=== PATIENT | female | born 1970 | race Caucasian/White ===

== ENCOUNTER → 2016-09-29 | Outpatient (CLI) | payer SELFPAY ==
[~2016-09-29] MED LIST: ADVAIR 500-501 EACH INH; ALDACTAZIDE 251 EACH PO; ASPIRIN325 MG PO; BRILINTA90 MG PO; COREG6.25 MG PO; ECOTRIN81 MG PO; FEXOFENADINE PO; LIPITOR40 MG PO; LIPITOR80 MG; LOPRESSOR25 MG PO; NICODERM/HABITR21 MG TRANS; NITROSTAT0.4 MG SL; PLAVIX75 MG PO; PRINIVIL (ZESTRI5 MG PO; PSEUDOEPHEDRINE PO; TYLENOL EXTRA500 MG PO; ULTRAM50 MG PO; VASOTEC2.5 MG PO; ZANTAC150 MG PO; ZESTRIL2.5 MG PO; ZETIA10 MG PO
== END | disposition disaster alternative care site (69) ==
LOC: GRAD 13:50
DX: R53.1 Weakness (principal); G93.89 Other specified disorders of brain

== ENCOUNTER → 2016-10-20 | Outpatient (CLI) | payer SELFPAY | END | disposition disaster alternative care site (69) | LOC: GRAD 13:41 | DX: M62.81 Muscle weakness (generalized) (principal) | CPT/HCPCS: A9577 ==

== ENCOUNTER 2016-12-11 13:49 | Observation (INO) | payer SELFPAY ==
[~2016-12-11] VITALS: Ht 170.2 cm; Wt 85.7 kg
--- NOTE | ~2016-12-11 | ESTC ---
Cardiac Perfusion Imaging Demographics Patient Name AUSTIN Salmon Gender Female Patient Number [id number] Race Visit Number [id number] [place] [id number] Room Number G6327 Accession Number [id number] Height 67 inches Date of 1970 Weight 195 pounds Interpreting Zaida Pappas Date of study 12/12/2016 Physician Supervising /BRISEIDAP Zaida Pappas NM Technologist Suzy Dunn MD Ordering Physician Stress Radha Hoffman payroll technician RVT Stress ECG Reading Zaida Pappas Nurse Propp Katelyn SANTO Physician Procedure Admit Source:Emergency department. Procedure Type: Nuclear Stress Test:Pharmacological, Lexiscan, Cardiolite Stress Test Procedure Start time: 12/12/2016 10:00 Indications: Jaw Pain. Risk Factors The patient risk factors include:prior PCI on 11/19/2014;cerebrovascular disease, Current/Recent(w/in 1 year) tobacco use, treated hypercholesterolemia, treated hypertension, diabetes mellitus, last creatinine: 0.8 mg/dl, dyslipidemia, prior [place] and creatinine clearance: 124 ml/min. Conclusions Summary EKG positive for ischemia with Lexiscan. Small to medium mid anterior fixed defect of moderate degreee most consistent with soft tissue attenuation. Small to medium inferolateral fixed defect of moderate degree most consistent with soft tissue attenuation. LVEF:52%. Normal WM.. Stress Protocols Resting ECG RSR. Pre-stress physical exam: Un changed. Predicted HR: 175 bpm ECG Findings [address] depression inferolateral leads. Arrhythmias No rhythm abnormality. Symptoms SOB. [place] hot. Stress Interpretation Lexiscan cardiolite with normal hemodynamic response. Had SOB and felt hot. EKG positive for ischemia. No arrythmia. Imaging Results Applied corrections - Motion correction applied High risk findings Summed scores - Summed stress score: 7 - Summed rest score: 10 - Summed difference score: -3 Stress ejection Ejection fraction:51 % EDV :173 ml ESV :84 ml Stroke volume :89 ml LV mass :187 gr LV size:Normal Normal LV function Imaging Protocols Rest Stress Isotope:Tc99m Sestamibi IV Isotope: Tc99m Sestamibi IV Isotope dose:14.5 mCi Isotope dose:44.9 mCi Date:12/12/2016 09:25 Date:12/12/2016 11:24 Technique: SPECT Technique: Gated Supine SPECT Supine IV remains in place after procedure. Procedure Medications - Regadenoson (Lexiscan) 0.4 mg IV over 10-15 sec. I.V. 0.4 mg. Medical History Other Previous Procedures + + +-------+ !Test name !Date !Remarks! + + +-------+ !Stress testing with SPECT MPI !12/12/2016! ! + + +-------+ Admission Medications + +------+ + +---------+--------+ !Name !Dosage!Times per day!Start date!Stop date!Details ! + +------+ + +---------+--------+ !Aspirin (any) ! ! ! ! ! ! + +------+ + +---------+--------+ !Statin (any) ! ! ! ! ! ! + +------+ + +---------+--------+ !SUDHAKAR Inhibitor (any) ! ! ! ! ! ! + +------+ + +---------+--------+ !Nitrates (iv or buccal)! ! ! ! ! ! + +------+ + +---------+--------+ !Beta Trace (any) ! ! ! ! ! ! + +------+ + +---------+--------+ Admission Data Admission date: 12/11/2016 Admission Time: 20:21 Hospital Status: Inpatient. Signatures dtt: Elyse Cerda dtd: 12/12/16 1000 Physician Self Edit
--- NOTE | ~2016-12-11 | HP ---
PATIENT'S NAME: INDY AVILA [facility] AGE: 46 Y [address] ROOM: G6327 [place], [place] [address] LOCATION: GPCU ADMIT DATE: 12/11/2016 History & Physical DISCHARGE DATE: FAMILY PHYSICIAN: PHYSICIAN, NO ATTENDING PHYSICIAN: Elyse Cerda DATE OF SERVICE: 12/11/2016 HISTORY OF PRESENT ILLNESS: Mrs. Avila is 46-year-old female patient who had developed a right interscapular area pain which is like an aching sensation which radiates to her right jaw, which in the past has usually meant significant coronary lesions. Indeed 2011, she underwent stents to the OM and ramus intermedius. Two years later in October of 2014, she underwent an LAD stent for a 70% lesion. At that time, her stents in the OM1 and ramus intermedius were patent. She has been doing well since then up until today. The pain does not radiate any place else. She was a little sweaty to begin with. After she was given nitroglycerin, she became somewhat nauseous. Initially, the pain was 6 on a scale of 1-10, now it is down to about 3-4 on a scale of 1-10. Her EKG showed mostly nonspecific ST-T wave changes with negative troponins. Her CT chest with PE protocol was negative for pulmonary emboli. The patient has not had any other chest pains. She does not have any structured exercise program. She is limited by her left knee, which has been replaced. She has noticed that she is tired lately. She does not have any significant shortness of breath if she is resting. However she seemed to be in functional class 2-3 with no paroxysmal nocturnal dyspnea or orthopnea. She does not have sleep apnea. She has no history of palpitations, lightheadedness, dizziness, syncope, presyncope, or ankle swelling. The patient has history of hypertension, elevated cholesterol, tobacco abuse which is ongoing, and family history of premature coronary artery disease. She denies type 2 diabetes. She has had 2 MIs in the past. She has had PCIs as mentioned earlier. She denies rheumatic fever, heart murmur, heart failure, dilated or enlarged heart, or any diagnosed cardiac arrhythmias. MEDICATIONS: Now include: 1. Lopressor 12.5 b.i.d. 2. Lisinopril 5 mg once a day. 3. Aspirin 81 mg a day. 4. Lipitor 40 mg a day. 5. Tramadol 50 mg every 4 hours. PATIENT'S NAME: INDY AVILA [facility] AGE: 46 Y [address] ROOM: [address] [address] [facility] ADMIT DATE: 12/11/2016 History & Physical DISCHARGE DATE: FAMILY PHYSICIAN: PHYSICIAN, NO ATTENDING PHYSICIAN: Elyse Cerda ALLERGIES: LATEX AND TYLENOL. PAST MEDICAL HISTORY: 1. Left knee surgery. 2. Breast biopsy. 3. History of CVA. SOCIAL HISTORY: The patient is . She denies abusing alcohol. She continues to smoke. Her weight is down by 15 pounds lately intentionally. Her appetite is reasonable and sleep is fair. FAMILY HISTORY: Positive for premature coronary artery disease in her mom. REVIEW OF SYSTEMS: A 12-point review of systems reveal the following positives: 1. Headaches. 2. Corrective lenses. 3. Blood vision and double vision. 4. Sinus problems. 5. History of wheezing, on Advair. 6. History of stomach ulcers. 7. Excessive uterine bleed because of "tipped uterus," she is in fact awaiting some surgery on her uterus. She had been losing enough blood in her periods, bleeding almost on a daily basis, that she has been anemic to some extent. 8. DJD. 9. Bursitis, knee. 10. Breast cancer with lumpectomy and chemotherapy. PHYSICAL EXAMINATION: VITAL SIGNS: On examination, her blood pressure is 170s systolic over 200 systolic, heart rate is in the 70s and regular, respirations 18, and afebrile. HEENT: Normal. NECK: Supple. No JVD, thyromegaly, lymphadenopathy, or carotid bruit. PMI is not well located. First and second heart sounds are regular. There are no added sounds or murmurs. CHEST: Clear to auscultation. ABDOMEN: Soft and obese. EXTREMITIES: Reveal no edema. CENTRAL NERVOUS SYSTEM: Intact. PATIENT'S NAME: INDY AVILA [facility] AGE: 46 Y [address] ROOM: [address] [address] LOCATION: [facility] ADMIT DATE: 12/11/2016 History & Physical DISCHARGE DATE: FAMILY PHYSICIAN: PHYSICIAN, NO ATTENDING PHYSICIAN: Elyse Cerda ASSESSMENT: A 46-year-old female patient with known coronary artery disease, status post percutaneous coronary intervention to the obtuse marginal and ramus intermedius in 2012 and left anterior descending artery in 2014. She has recurrence of the same pains. She has ruled out for myocardial infarction and she has nonspecific ST-T wave EKG changes present. RECOMMENDATIONS: 1. We will rule her out for SD. 2. The patient has bleeding from her uterus and this need to be evaluated to some extent before making any final decisions about any revascularization procedures. Her MCV and MCH as well as hemoglobin are all low. 3. Severe systolic hypertension, that needs better control as well. Again, I appreciate this opportunity to participate in the care of Mrs. Avila. MD CHRISTI MENDOZA/rishabh /[id number] D: [id number] T: [id number] HISTORY & PHYSICAL
--- NOTE | ~2016-12-11 | ECHO ---
Transthoracic Echocardiography Report (TTE) Demographics Patient Name INDY AVILA Date of Study 12/12/2016 Patient Number [id number] Visit Number [id number] Date of 1970 Room Number G6327 Gender Female Number Age 46 year(s) Referring Zaida Pappas Police Officer Campos Bond Physician RDCS, RVT Physician Interpreting Zaida Pappas Steamfitter Apprentice Physician Supervising Ordering Zaida Pappas MD/MLP Physician Nurse Stress Screen Print Operator Conclusions Contractility Score Summary Normal Left Ventricular contractility was noted. Summary The estimated left ventricular ejection fraction is 55-60% with normal internal dimension,wall thickness and WM. No significant valvular abnormalities. Procedure Type of Study TTE procedure:2D Echocardiogram. Procedure Date Date: 12/12/2016 Start: 08:47 AM Study Location: Inpatient Portable Technical Quality: Adequate visualization Indications:Chest pain. Appropriate Use Criteria: 9 Patient Status: Routine Rhythm: NSR HR: 85 bpm BP: 164/88 mmHg Allergies - Other:(bananas). - Latex. - Other:(banana). M-Mode/2D Measurements LV Diastolic Dimension: 5.19 cm LV Systolic Dimension: 3.64 cm LV Septum Diastolic: 0.74 cm LV PW Diastolic: 0.87 cm AO Root Dimension: 3.3 cm Cardiac Output: 4.5 l/min AV Cusp Separation: 2.4 cm RV Diastolic Dimension: 2.32 cm LA volume: 52 ml LVOT: 1.8 cm RV Base: 2.78 cm LVOT VTI: 20.8 cm RV Mid: 2.22 cm LV Stroke volume: 52.9 ml TAPSE: 2.78 cm TDI-S': 12.9 cm/s Doppler Measurements AV Peak Velocity: 1.29 m/s MV Peak E-Wave: 0.86 m/s AV Peak Gradient: 6.66 mmHg MV Peak A-Wave: 1.06 m/s AV Mean Gradient: 5 mmHg MV E/A Ratio: 0.82 LVOT Peak Velocity: 0.95 m/s MV P1/2t: 63 msec TR Gradient:12.25 mmHg PV Peak Velocity: 0.98 m/s Estimated RAP:5 mmHg PV Peak Gradient: 3.83 mmHg Estimated RVSP: 17 mmHg Estimated PASP: 17.25 mmHg E' Septal Velocity: 0.05 m/s A' Septal Velocity: 0.11 m/s E' Lateral Velocity: 0.07 m/s A' Lateral Velocity: 0.15 m/s Findings Left Ventricle Normal left ventricle size and function. Diastolic assessment reveals Grade I diastolic dysfunction. Right Ventricle Normal right ventricle structure and function. Left Atrium Normal left atrial size. Right Atrium Normal right atrial size. IVC measures 1.74 cm with inspiratory collapse. Mitral Valve Trivial mitral regurgitation by color Doppler. Aortic Valve Normal aortic valve structure and function. Tricuspid Valve Trivial tricuspid regurgitation by color Doppler. Pulmonic Valve Normal pulmonic valve structure and function. Pericardial Effusion No evidence of pericardial effusion. Miscellaneous Visualized portions of the aortic root and ascending aorta appear normal in size. Pleural Effusion No evidence of pleural effusion. Contractility Score LV regional wall motion:(0-Non visualized 1-Normal 2-Hypokinesis 3-Akinesis 4-Dyskinesis 5-Aneurysm) Signature dtt: Elyse Cerda dtd: 12/12/16 0847 Physician Self Edit
--- NOTE | ~2016-12-11 | CATH ---
Cardiac Diagnostic Report Demographics Patient Name AUSTIN Salmon Gender Female Date of 1970 Age 46 year(s) Patient Number [id number] Date of Study 12/13/2016 Visit Number [id number] Room Number G6[address] [place] [id number] Ht 170.18 cm Wt 88.45 kg Referring Zaida Primary Physician Physician Elyse FRIEND Performing Zaida Secondary Physician Physician Elyse FRIEND Diagnostic Zaida Assisting Physician Physician Elyse FRIEND Interventional Physician Wine Master Physician Findings and Conclusions Diagnostic Findings and Conclusion 1. In-stent re-stenosis in mid LAD and Ramus which could be significant. 2. New lesions in distal LCx appear significant. 3. Normal LVEDP. Diagnostic Recommendations 1. Patient bleeding from tract is worrisome; will consult with business analytics specialist. 2. Check hemoccults. 3. Start iron, aspirin, and plavix and see if hemoglobin level drops. IFR to ISR lesions and PCI of new distal LCx lesion when bleeding problem resolved. Procedure Description The patient was brought to the diagnostic cardiac catheterization-EP laboratory in the fasting, non-sedated state. Informed consent was obtained in the written and verbal form after the risks and benefits were explained. The patient had no further questions and agreed to proceed. The planned puncture-incision site(s) were shaved and prepped with ChloraPrep and draped in the usual sterile manner. Conscious sedation and pain control medications were delivered by a registered nurse under physician guidance. Surface ECG rhythm, blood pressure measurement, and pulse oximetry were monitored throughout the procedure. Arterial access. The access site was infiltrated with lidocaine. The vessel was entered with the Seldinger technique. A sheath was advanced into the vessel and used for catheter placement. Selective left coronary angiography. A catheter was advanced into the left coronary vessel ostium under Fluoroscopic guidance. Contrast was injected by hand. Images were obtained in multiple projections. Selective right coronary angiography. A catheter was advanced into the right coronary vessel ostium under fluoroscopic guidance. Contrast was injected by hand. Images were obtained in multiple projections. Left heart catheterization. A catheter was advanced across the aortic valve to the left ventricle under fluoroscopic guidance. Resting hemodynamics were obtained. Arterial artery hemostasis was achieved. The patient was transferred to a regular nursing floor via cart accompanied by a nurse. The patient left the laboratory in stable condition. Diagnostic Cath Status: Urgent Procedure Procedure Type Diagnostic procedure:Angiography:, Coronary Angios /[facility] Indications: Jaw Pain and Abnormal Stress Test. The procedure was explained in detail to the patient. Risks, complications and alternative treatments were reviewed. Written consent was obtained. Medications Reviewed with Patient prior to Procedure. Angiographic Findings Dominance: Left Cardiac Arteries and Lesion Findings LMCA: Normal. LAD: Type III ISR 70% to mid LAD stent. Mild diffuse disease. There is a previous stent on Mid LAD Proximal subsection showing diffuse ISR. Lesion on Mid LAD: Proximal subsection.70% stenosis . The lesion was previously treated on 11/19/2014 with the following techniques: drug eluting stent. This is in-stentrestenosis. LCx: Distal LCx 80-90% stenosis followed by 75% stenosis. Mild diffuse disease. OM1 stent patent.There is a previous stent on 1st Ob Lashae showing wide patency. Lesion on Dist CX: Proximal subsection.90% stenosis . Lesion on Dist CX: Distal subsection.75% stenosis . RCA: Non-dominant. 70% lesions x 2. Lesion on Prox RCA: Proximal subsection.70% stenosis . Lesion on Prox RCA: Distal subsection.70% stenosis . Ramus: ISR 80%.There is a previous stent on Ramus Proximal subsection showing diffuse ISR. Lesion on Ramus: Proximal subsection.80% stenosis . The lesion was previously treated on 07/11/2011 with the following techniques: drug eluting stent. This is in-stentrestenosis. Coronary Tree Procedure Data Procedure Date Date: 12/13/2016Start: 10:08 AMEnd: 10:45 AM Entry Locations - Retrograde Percutaneous access was performed through the Right Radial artery (Primary location). A 6 Fr sheath was inserted. Hemostasis was successfully obtained using Mechanical Compression. Closure Comments: 14 ml of air in R. Band by Nancy Caceres. . Procedure Medications Order and Administration + + +--------+ + !Time !Medication !Dosage !Route ! + + +--------+ + !12/13/2016 !Fentanyl !50 mcg !I.V. ! !09:53 AM ! ! ! ! + + +--------+ + !12/13/2016 !Versed !1 mg !I.V. ! !10:05 AM ! ! ! ! + + +--------+ + !12/13/2016 !Versed !1 mg !I.V. ! !10:09 AM ! ! ! ! + + +--------+ + !12/13/2016 !Fentanyl !25 mcg !I.V. ! !10:09 AM ! ! ! ! + + +--------+ + !12/13/2016 !AMK Radial Cocktail: Nitroglycerin ! !I.A. ! !10:12 AM !100mcg, Verapamil 3 mg, Lidocaine 40mg ! ! ! ! !(ACC_3) ! ! ! + + +--------+ + !12/13/2016 !Heparin (ACC_3) !5000 ! ! !10:13 AM ! !units ! ! + + +--------+ + !12/13/2016 !0.9% NaCl !200 ml !I.V. bolus! !10:14 AM ! ! ! ! + + +--------+ + Devices Used - A6 Fr. BS JR 4 Diag. Catheterwas used for:Right coronary angiography. - A6 Fr. BS JL 3.5 Diag. Catheterwas used for:Left coronary angiography. Contrast Material - Isovue 11873 ml Fluoroscopy Time: Diagnostic: 4:54 minutes. Total: 4:54 minutes. Fluoroscopy Dose: Diagnostic: 897 mGy. Total: 897 mGy. Estimated Blood Loss: 15 ml. Medical History Performed Procedures and Imaging Results - Stress testing with SPECT MPIwas performed on 12/12/2016. Results were: Positive. Allergies - Other:(bananas). - Latex. - Other:(banana). Risk Factors The patient risk factors include:prior PCI on 11/19/2014;cerebrovascular disease, treated hypercholesterolemia, treated hypertension, diabetes mellitus, last creatinine: 0.8 mg/dl, creatinine clearance: 124 ml/min, dyslipidemia, Current/Recent(w/in 1 year) tobacco use and prior [place] . Admission Data Admission Date: 12/11/2016 Admission Time: 08:21 PM Admit Source: Emergency department Insurance Payors: None. Admission Medications + +------+------+ + + + + !Medication !Dosage!Times !Last !Last !Administered !Comments ! ! ! !Per !Delivery !Delivery ! ! ! ! ! !Day !Date !Time ! ! ! + +------+------+ + + + + !Aspirin ! ! ! ! ! ! ! !(any) ! ! ! ! ! ! ! + +------+------+ + + + + !Statin (any)! ! ! ! ! ! ! + +------+------+ + + + + !SUDHAKAR ! ! ! ! ! ! ! !Inhibitor ! ! ! ! ! ! ! !(any) ! ! ! ! ! ! ! + +------+------+ + + + + !Nitrates (iv! ! ! ! ! ! ! !or buccal) ! ! ! ! ! ! ! + +------+------+ + + + + !Beta Trace! ! ! ! ! ! ! !(any) ! ! ! ! ! ! ! + +------+------+ + + + + Clinical Evaluation Leading to Procedure Diagnosed on 12/13/2016 12:00 AM. - The patient's CAD presentation was assessed as: Unstable angina. - The patient's anginal syndrome during the past two weeks was assessed as: Class III according to the [place] Cardiovascular Society Classification System (CCS). Anti-anginal medications were prescribed during the past two weeks. The medication is: Beta Blockers. Hemodynamics Condition: Rest O2 Consumption: Estimated: 204.18Heart Rate: 76 bpm Pressures (mmHg) +-----+ + !Site !Pressure ! +-----+ + !LV !99/-1 ,0 ! +-----+ + !LV !85/-2 ,0 ! +-----+ + !AO !81/50 (63) ! +-----+ + !LV !82/-5 ,-1 ! +-----+ + !AO !84/50 (64) ! +-----+ + !AO !104/58 (76) ! +-----+ + !AO !113/54 (78) ! +-----+ + Valve Gradients and Areas + +---------+---------+---------+ +---------+ + !Valve !Peak !Mean !Area !Index !Flow !Source ! + +---------+---------+---------+ +---------+ + !Aortic !0 !0 ! ! ! ! ! + +---------+---------+---------+ +---------+ + !Aortic !0 !0 ! ! ! ! ! + +---------+---------+---------+ +---------+ + Shunts Oxygen Values O2 Capacity 133.28 O2 Consumption 204.18 Discharge Data Discharge Date: 12/13/2016 Hospital Status: Inpatient Signatures dtt: Elyse Cerda dtd: 12/13/16 1008 Physician Self Edit
--- NOTE | ~2016-12-11 | ER ---
PATIENT'S NAME: INDY AVILA [facility] AGE: 46 Y [address] ROOM: [place] [address] LOCATION: GPCU ADMIT DATE: 12/11/2016 ER/Outpatient Report DISCHARGE DATE: FAMILY PHYSICIAN: PHYSICIAN, NO ATTENDING PHYSICIAN: Elyse Cerda TIME OF ARRIVAL: 1351. TIME OF EXAM: 1355. CHIEF COMPLAINT: Right shoulder, right jaw pain. HISTORY OF PRESENT ILLNESS: The patient states approximately 1 hour ago she began having pain in the right shoulder blade area that radiates up into the right jaw area. She states that this is similar to the pain that she has had in the past when she has had a heart attack. Reports that she did take a nitroglycerin at home but did not have any relief of her pain. She denies having any shortness of breath, has not had a cough, denies having any anterior chest pain. Denies feeling febrile or chilled, has not been nauseated, has not vomited. Denies having any abdominal pain. Has not had any change in bowel or bladder pattern. Denies having any injury to her shoulder or jaw area. ALLERGIES: TYLENOL AND LATEX. CURRENT MEDICATIONS: On the chart and reviewed by me. PAST MEDICAL HISTORY: Hypertension, MT x3, heart stents x4, CVA, questionable aneurysm, breast cancer been in remission for the past 5 years. Last time she had heart stent was in October 2014. SURGERIES: Heart stents, left knee, breast biopsy. SOCIAL HISTORY: She states she smokes a pack to pack and half per day. Denies use of drugs and alcohol. 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 Reports that Dr. Vazquez and Dr. Nguyen are her gas controller's. PATIENT'S NAME: INDY AVILA [facility] AGE: 46 Y [address] ROOM: [place] [address] LOCATION: GPCU ADMIT DATE: 12/11/2016 ER/Outpatient Report DISCHARGE DATE: FAMILY PHYSICIAN: PHYSICIAN, NO ATTENDING PHYSICIAN: Elyse Cerda REVIEW OF SYSTEMS: All negative other than those mentioned in the HPI. PHYSICAL EXAMINATION: VITAL SIGNS: Weight 87.8 kg, blood pressure was 162/117, pulse of 84, respirations 18, temperature of 96.9, O2 saturation is 99% on room air. GENERAL: The patient is awake, alert, and oriented x4. SKIN: [place], warm, and dry. RESPIRATIONS: Even and nonlabored. Lung sounds are clear throughout. HEART: Regular rate and rhythm. Monitor shows sinus rhythm. ABDOMEN: Soft, nondistended. Bowel sounds are present. No peripheral edema noted. She has positive peripheral pulses. EMERGENCY DEPARTMENT COURSE: Saline lock was initiated. Lab work was drawn. The patient was given aspirin 81 mg x3 tabs as she had already taken one at home. LABORATORY DATA AND X-RAYS: Initial EKG shows sinus rhythm. CBC: Hemoglobin is 9.8 with hematocrit of 33.7. Chem panel: Sodium is 142, potassium 3.6, chloride of 110, BUN was 8, with creatinine 0.8. CPK was 52. CK-MB is 0.9 and troponin is negative. She continued to have pain in the right shoulder blade area. We did give her nitroglycerin sublingual x1 tab, did not improve her pain at all. She was given Zofran 4 mg IV and morphine 2 mg IV. Reports pain was unchanged. I did discuss the patient with Dr. Delgadillo. CT PE protocol was completed. Radiologist reports it is negative. I called and talked with Dr. Nguyen. He asked we give the patient Lopressor 2 mg IV every 5 minutes x4 as long as her heart rate stays above 60 and a systolic blood pressure stays greater than 120. We did do that. Please see print out of her vital signs during that time. Repeat EKG is unchanged. Repeat cardiac enzymes shows CPK of 49 with a CK-MB of 0.7 and a normal troponin. Dr. Nguyen did come down and evaluated the patient. The patient to be admitted for his care. IMPRESSION: 1. Right shoulder pain. 2. Right jaw pain. 3. History of coronary artery disease. PLAN: The patient will be placed in PCU and followed by Dr. Frazier. She is aware of plan. PATIENT'S NAME: INDY AVILA [facility] AGE: 46 Y [address] ROOM: [address] [address] LOCATION: GPCU ADMIT DATE: 12/11/2016 ER/Outpatient Report DISCHARGE DATE: FAMILY PHYSICIAN: YUNI AMES ATTENDING PHYSICIAN: Elyse Cerda HUGO NELSON MD DJ/modl /[id number] d: 12/12/16 0349 t: 12/18/16 1926, OUTPATIENT REPORT
[~2016-12-11 13:49] MED LIST changes: -ADVAIR 500-501 EACH INH; -ALDACTAZIDE 251 EACH PO; -ASPIRIN325 MG PO; -COREG6.25 MG PO; -LIPITOR80 MG; -PLAVIX75 MG PO; -PRINIVIL (ZESTRI5 MG PO; -ZESTRIL2.5 MG PO
[2016-12-11 14:24] LABS: BASOPHIL # 0.1 K/uL (0.0-0.2); BASOPHIL % 0.9 %; EOSINOPHIL # 0.2 K/uL (0.0-0.5); EOSINOPHIL % 1.9 %; HEMATOCRIT 33.7 % (33.0-46.0); HEMOGLOBIN 9.8 g/dL (10.0-15.0); IMMATURE GRANULOCYTE % 0.1 %; LYMPHOCYTE % 26.3 %; MCH 20.5 pg (27.0-34.0); MCHC 29.1 gm/dL (32.0-36.5); MCV 70.6 fl (83.0-98.0); MONOCYTE # 0.6 K/uL (0.0-1.0); MONOCYTE % 7.7 %; MPV 9.3 fl (9.4-12.4); NEUTROPHIL # (ANC) 4.9 K/uL (1.8-7.8); NEUTROPHIL % 63.1 %; NRBC % 0 /100WBC (0-0.00); PLATELET COUNT 366 K/uL (150-450); RBC 4.77 M/uL (3.50-5.50); RDW-CV 18.1 % (11.9-14.6); WBC 7.8 K/uL (4.0-11.0)
[2016-12-11 14:39] LABS: PROTIME 10.5 SECONDS (9.8-11.4); PTT 27 SECONDS (25-32)
[2016-12-11 14:47] LABS: ALBUMIN 3.6 gm/dL (3.5-5.0); ALT 15 IU/L (12-78); ANION GAP 12.6 (10.0-19.0); AST 9 IU/L (10-40); BLOOD UREA NITROGEN 8 mg/dL (6-24); CALCIUM 8.6 mg/dL (8.5-10.5); CHLORIDE 110 mMol/L (96-110); CO2 23 mMol/L (22-32); CPK 52 IU/L (21-215); CREATININE 0.8 mg/dL (0.5-1.1); ESTIMATED GFR (MDRD EQUATION) > 60; MAGNESIUM 2.1 mg/dL (1.8-2.6); POTASSIUM 3.6 mMol/L (3.7-5.1); SODIUM 142 mMol/L (135-145); TOTAL BILIRUBIN 0.2 mg/dL (0.0-1.5); TOTAL PROTEIN 7.6 g/dL (6.0-8.4)
[2016-12-11 15:08] LABS: ALK PHOS 105 IU/L (33-138)
[2016-12-11 16:51] LABS: CPK 49 IU/L (21-215)
[2016-12-11] MEDS ORDERED: PRINIVIL (ZESTRI5 MG PO (21:21)
[2016-12-11] MEDS ORDERED: ADVAIR 500-501 EACH INH (21:23)
--- NOTE | 2016-12-12 04:25 | NUR ---
Patient admitted from ED to PCU at 2245 for chest pain. Patient presented to ED around 1400 with complaints of chest pain that radiated to her jaw and right shoulder/back area. She took SL nitro at home, but it did not relieve her pain. In ED they gave her more SL nitro and morphine, with no relief. She then experienced nausea and was given Zofran, with relief. Labetolol given for SBP's up to 200's. Dr. Cerda saw patient in ED. EKG and cardiac enzymes were normal. Patient's symptoms improved. When she arrived to the floor, she was still pain-free. Patient is a current smoker, history of breast CA with 5 years in remission, HTN, CVA vs aneurysm, and PA with 3 stents.
--- NOTE | 2016-12-12 04:37 | NUR ---
Significant Event: Patient is alert/oriented x3. Labetolol given x1 for SBP 180's, BP came down to 157/85 about 1 hour later. Other vital signs are stable. On room air. TN-I continues to be negative. Patient continues to deny any pain or discomfort. Follow up: EKG and TN-I at 0600. NPO for Lexiscan stress test this AM.
--- NOTE | 2016-12-12 15:33 | NUR ---
(-)MST; PT HAS LOST ABOUT 6 LBS OVER THE LAST SEVERAL WEEKS. NO CHANGE IN APPETITE, NO ILLNESS. PT HAS STARTED WALKING MORE DURING THAT TIME. SHE ALSO HAS MADE SOME DIETARY CHANGES WELL; DECREASING THE AMOUNT OF REGULAR MT. DEW SHE HAS BEEN DRINKING. PO INTAKE SINCE ADMIT HAS BEEN GOOD. WILL ASSIST NEEDED.
--- NOTE | 2016-12-12 19:03 | NUR ---
Significant Event: PT A&O x3. HTN, PRN labetolol given. Up ad drake in room. Stress test done today. NPO after midnight for heart cath tomorrow. Tolerating diet. IV patent. Follow up:
--- NOTE | 2016-12-13 07:04 | NUR ---
Significant Event: Patient alert/oriented x3. Vital signs are stable. Labetolol given x2 for SBP's > 160. Last SBP was 135. On room air. Tramadol given x1 for headache/knee pain, otherwise denies any pain/discomfort. Consents signed for heart cath this AM and she has been NPO since midnight. Follow up: Heart cath this AM.
[2016-12-13] MEDS ORDERED: ASPIRIN325 MG PO (17:25)
[2016-12-13] MEDS ORDERED: LIPITOR80 MG (17:25)
[2016-12-13] MEDS ORDERED: COREG6.25 MG PO (17:26)
[2016-12-13] MEDS ORDERED: ZESTRIL2.5 MG PO (17:27)
[2016-12-13] MEDS ORDERED: ALDACTAZIDE 251 EACH PO (17:29)
[2016-12-13] MEDS ORDERED: PLAVIX75 MG PO (17:29)
--- NOTE | 2016-12-13 18:42 | NUR ---
Significant Event: A&O. VSS, AFEBRILE, ROOM AIR. HEART CATH WITH NO INTERVENTION, R) RADIAL. R-BAND REMOVED, BANDAID AND COBAN IN PLACE. IV REMOVED. DISCHARGE MEDS AND INSTRUCTIONS DISCUSSED, VERBALIZED UNDERSTANDING. DC TO HOME, SPOUSE TO TRANSPORT.
== END 2016-12-13 17:50 | disposition disaster alternative care site (69) ==
LOC: GMED 13:49 → GPCU 20:21
PROVIDERS: Nurse Practitioner Family; ADMIT Internal Medicine Interventional Cardiology
PROC: 4A023N7 Measurement of Cardiac Sampling and Pressure, Left Heart, Percutaneous Approach (ICD-10-PCS; principal; 2016-12-13)
DX: T82.855A Stenosis of coronary artery stent, initial encounter (principal); I25.110 Atherosclerotic heart disease of native coronary artery with unstable angina pectoris; I25.2 Old myocardial infarction; I10 Essential (primary) hypertension; E78.00 Pure hypercholesterolemia, unspecified; F17.200 Nicotine dependence, unspecified, uncomplicated; Z82.49 Family history of ischemic heart disease and other diseases of the circulatory system; Z86.73 Personal history of transient ischemic attack (TIA), and cerebral infarction without residual deficits; Z91.040 Latex allergy status; Z88.8 Allergy status to other drugs, medicaments and biological substances; Z98.890 Other specified postprocedural states; Y83.8 Other surgical procedures as the cause of abnormal reaction of the patient, or of later complication, without mention of misadventure at the time of the procedure
CPT/HCPCS: A9500; C1894; G0378; J0461; J1644; J2250; J2270; J2405; J2785; J3010; J7030; Q9967